=== PATIENT | female | born 1955 | race Native Hawaiian/Other Pacific Islander ===

== ENCOUNTER 2017-01-12 14:26 | Emergency (ER) | payer BC ==
[~2017-01-12] VITALS: Ht 167.6 cm; Wt 104.3 kg
[2017-01-12 14:45] VITALS: TEMP 98.9
[2017-01-12 15:11] LABS: PLATELET COUNT 212 K/uL (152-353)
[2017-01-12 16:08] VITALS: BP 127/67
== END 2017-01-12 16:15 | disposition home or self-care (01) ==
LOC: ED 14:26
DX: J02.0 Streptococcal pharyngitis (principal); B20 Human immunodeficiency virus [HIV] disease; I95.9 Hypotension, unspecified
CPT/HCPCS: 36415; 81002; 85027; 87804; 87880; 96361; 96365; 99284; J0696

== ENCOUNTER → 2017-01-15 17:00 | Outpatient (CLI) | payer BC ==
[~2017-01-15 17:00] MED LIST: AMOX875T8 PO; ATRIPLA PO; EMTRIVA200 MG OR; FLUO10CA2 PO; HYDROCHLOROT12.5 M1 PO; KETOROLAC10 MG PO; LAMICTAL200 MG PO; LISI10TA11 PO; LISI20TA11 PO; LISI20TA31 PO; ODEFSEY PO; PRAVACHOL20 MG PO
== END ==
LOC: AMB 17:00
DX: R06.09 Other forms of dyspnea (principal); R42 Dizziness and giddiness
CPT/HCPCS: A0425; A0427

== ENCOUNTER 2017-01-15 17:09 | Inpatient (IN) | payer BC ==
[~2017-01-15] VITALS: Ht 167.6 cm; Wt 111.4 kg
[2017-01-15 17:10] VITALS: BP 180/97; TEMP 101
[2017-01-15] MEDS ORDERED: LAMICTAL200 MG PO (17:19)
[2017-01-15] MEDS ORDERED: EMTRIVA200 MG OR (17:21)
[2017-01-15] MEDS ORDERED: FLUO10CA2 PO (17:22)
[2017-01-15 17:55] LABS: PLATELET COUNT 220 K/uL (152-353)
[2017-01-15 18:04] LABS: POTASSIUM 3.3 mmol/L (3.6-5.2)
[2017-01-15 23:41] VITALS: BP 151/85; TEMP 99.6; Ht 167.6 cm; Wt 111.4 kg
[2017-01-16] VITALS (23 sets, daily range): BP systolic 85–153; BP diastolic 30–94; TEMP 98.1–100.5
[2017-01-16 10:25] LABS: PLATELET COUNT 213 K/uL (152-353)
[2017-01-16] MEDS ORDERED: LISI10TA11 PO (10:42)
[2017-01-16] MEDS ORDERED: PRAVACHOL20 MG PO (10:43)
[2017-01-16] MEDS ORDERED: LISI20TA31 PO (10:44)
[2017-01-16] MEDS ORDERED: LISI20TA11 PO (10:52)
[2017-01-16] MEDS ORDERED: HYDROCHLOROT12.5 M1 PO (10:53)
[2017-01-16 10:55] LABS: POTASSIUM 3.3 mmol/L (3.6-5.2)
[2017-01-16] MEDS ORDERED: ODEFSEY PO (10:55)
[2017-01-16] MEDS ORDERED: ATRIPLA PO (10:56)
[2017-01-16] MEDS ORDERED: AMOX875T8 PO (14:35)
[2017-01-16] MEDS ORDERED: KETOROLAC10 MG PO (14:42)
[2017-01-17] VITALS (19 sets, daily range): BP systolic 89–147; BP diastolic 31–81; TEMP 96.5–97.9
[2017-01-17 05:22] LABS: POTASSIUM 3.6 mmol/L (3.6-5.2)
[2017-01-17 06:06] LABS: PLATELET COUNT 167 K/uL (152-353)
[2017-01-17 21:22] LABS: POTASSIUM 3.8 mmol/L (3.6-5.2)
[2017-01-18] VITALS (36 sets, daily range): BP systolic 8–166; BP diastolic 41–91; TEMP 97.5–98.4
[2017-01-18 05:13] LABS: POTASSIUM 3.7 mmol/L (3.6-5.2)
[2017-01-18 05:18] LABS: PLATELET COUNT 192 K/uL (152-353)
[2017-01-19] VITALS (58 sets, daily range): BP systolic 84–139; BP diastolic 38–72; TEMP 97–97.8
[2017-01-19 06:56] LABS: POTASSIUM 4.1 mmol/L (3.6-5.2)
[2017-01-19 07:33] LABS: PLATELET COUNT 231 K/uL (152-353)
== END 2017-01-19 18:06 | disposition short-term general hospital (02) | DRG 871 ==
LOC: ED 17:09 → MED/SURG 22:09 → ICU 22:09 → ED 22:34 → ICU 01-16 08:00
PROVIDERS: Emergency Medicine; Internal Medicine; ADMIT Specialist
PROC: 5A1935Z Respiratory Ventilation, Less than 24 Consecutive Hours (ICD-10-PCS; principal; 2017-01-18)
PROC: 0BH17EZ Insertion of Endotracheal Airway into Trachea, Via Natural or Artificial Opening (ICD-10-PCS; 2017-01-18)
DX: R65.20 Severe sepsis without septic shock (principal); J15.4 Pneumonia due to other streptococci; B20 Human immunodeficiency virus [HIV] disease; E87.1 Hypo-osmolality and hyponatremia; N17.8 Other acute kidney failure; E87.4 Mixed disorder of acid-base balance; J80 Acute respiratory distress syndrome; B19.10 Unspecified viral hepatitis B without hepatic coma; E83.42 Hypomagnesemia; E16.1 Other hypoglycemia; E88.09 Other disorders of plasma-protein metabolism, not elsewhere classified; E83.39 Other disorders of phosphorus metabolism; R79.89 Other specified abnormal findings of blood chemistry; I10 Essential (primary) hypertension; B19.20 Unspecified viral hepatitis C without hepatic coma
CPT/HCPCS: 36415; 36600; 51702; 80048; 80053; 80307; 81000; 82436; 82570; 82805; 82962; 83605; 83735; 83880; 84100; 84133; 84300; 85027; 85384; 85610; 85730; 86361; 87040; 87070; 87205; 89050; 93005; 94003; 94640; 94664; 94760; 96361; 96365; 96372; 99284; G0479; J0330; J0456; J0696; J1265; J1644; J1956; J2060; J2250; J2270; J3490

== ENCOUNTER 2017-01-19 18:32 | Outpatient (CLI) | payer BC | END 2017-01-19 19:42 | disposition short-term general hospital (02) | LOC: AMB 18:32 | DX: R65.20 Severe sepsis without septic shock (principal); J15.4 Pneumonia due to other streptococci; B20 Human immunodeficiency virus [HIV] disease; E87.1 Hypo-osmolality and hyponatremia; N17.8 Other acute kidney failure; E87.4 Mixed disorder of acid-base balance; J80 Acute respiratory distress syndrome; B19.10 Unspecified viral hepatitis B without hepatic coma; E83.42 Hypomagnesemia; E16.1 Other hypoglycemia; E88.09 Other disorders of plasma-protein metabolism, not elsewhere classified; E83.39 Other disorders of phosphorus metabolism; R79.89 Other specified abnormal findings of blood chemistry; I10 Essential (primary) hypertension; B19.20 Unspecified viral hepatitis C without hepatic coma | CPT/HCPCS: A0425; A0427 ==

== ENCOUNTER 2018-12-19 10:36 | Outpatient (CLI) | payer BC | END 2018-12-19 19:17 | disposition home or self-care (01) | LOC: RAD 10:36 | DX: J20.9 Acute bronchitis, unspecified (principal) ==

== ENCOUNTER 2020-12-14 09:11 | Outpatient (CLI) | payer BC | END 2020-12-14 19:16 | disposition home or self-care (01) | LOC: RAD 09:11 | PROVIDERS: ATTEND Internal Medicine | DX: M51.36 Other intervertebral disc degeneration, lumbar region (principal) ==

== ENCOUNTER 2021-03-19 10:35 | Outpatient (CLI) | payer BC | END 2021-03-19 21:51 | disposition home or self-care (01) | LOC: MAMMO 10:35 | PROVIDERS: ATTEND Nurse Practitioner | DX: Z12.31 Encounter for screening mammogram for malignant neoplasm of breast (principal) ==